=== PATIENT | male | born 1960 | race Caucasian/White ===

== ENCOUNTER 2018-09-04 16:16 | Emergency (ER) | payer BC ==
[2018-09-04 17:23] VITALS: BP 149/87
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
== END 2018-09-04 17:47 | disposition home or self-care (01) ==
LOC: UCCORT 16:16
DX: H53.8 Other visual disturbances (principal); E11.9 Type 2 diabetes mellitus without complications; Z72.0 Tobacco use; Z88.2 Allergy status to sulfonamides; Z72.89 Other problems related to lifestyle
CPT/HCPCS: 99202; G0463